=== PATIENT | female | born 1950 | race Caucasian/White ===

== ENCOUNTER → 2016-12-01 | Outpatient (CLI) | payer OTHER ==
--- NOTE | 2016-12-01 16:32 | MA ---
Screening Digital Mammogram Clinical Indications: Routine screening. Technique: Standard cephalocaudal and mediolateral oblique projections are obtained. This examinati on was processed by the [employer] computer aided detection system. Comparison: November 2015, July 2014 and July 2013 Breast density: C; The breast tissue is heterogeneously dense, which could obscure detection of small masses. There is atherosclerotic vascular calcification. Findings: CAD was reviewed. No suspicious findings are identified. Impression: Negative mammogram. BI-RADS 1. Recommendation: Routine screening is recommended in one year, as long as physical examination is sohail ign in this patient with moderately dense breast parenchyma. [facility] will send a result letter to the patient. Negative mammography should not preclude additional workup of a clinically suspicious finding. The patient's information is entered into a reminder system with a target due date for her next mammo gram.
== END ==
LOC: CIMAGING 12:09
DX: Z12.31 Encounter for screening mammogram for malignant neoplasm of breast (principal)
CPT/HCPCS: G0202

== ENCOUNTER → 2017-05-11 | Outpatient (CLI) | payer OTHER | LOC: CIMAGING 14:16 | PROVIDERS: ATTEND Family Medicine | DX: I50.9 Heart failure, unspecified (principal); M51.34 Other intervertebral disc degeneration, thoracic region; I10 Essential (primary) hypertension | CPT/HCPCS: 71020-PO ==

== ENCOUNTER → 2017-12-15 | Outpatient (CLI) | payer OTHER | LOC: FIMAGING 10:56 | PROVIDERS: ATTEND Family Medicine | DX: Z12.31 Encounter for screening mammogram for malignant neoplasm of breast (principal) ==

== ENCOUNTER → 2018-02-20 | Outpatient (CLI) | payer OTHER | LOC: CIMAGING 08:50 | PROVIDERS: ATTEND Family Medicine | DX: M25.552 Pain in left hip (principal) | CPT/HCPCS: 73502-PO ==

== ENCOUNTER → 2018-12-30 | Outpatient (CLI) | payer OTHER | LOC: CIMAGING 10:59 | PROVIDERS: ATTEND Family Medicine | DX: Z12.31 Encounter for screening mammogram for malignant neoplasm of breast (principal) ==